=== PATIENT | female | born 1995 | race Caucasian/White ===

== ENCOUNTER → 2019-05-17 | Outpatient (CLI) | payer OTHER ==
[2019-05-17 10:34] LABS: Basophils % (A) 1 %; Eosinophils # (A) 0.1 k/uL (0-0.7); Eosinophils % (A) 3 %; HCT 46.2 % (34.0-46.0); HGB 14.4 gm/dL (11.4-16.0); Lymphocytes # (A) 1.3 k/uL (1.0-4.8); Lymphocytes % (A) 34 %; MCHC 31.2 g/dL (31.0-37.0); Mean Platelet Volume 8.2; Monocytes # (A) 0.3 k/uL (0-1.0); Monocytes % (A) 7 %; Neutrophils # (A) 2.1 k/uL (1.3-7.7); Neutrophils % (A) 53 %; Platelet Count 196 k/uL (150-450); RBC 4.97 m/uL (3.80-5.40); RDW 12.6 % (11.5-15.5); WBC 3.9 k/uL (3.8-10.6)
[2019-05-17 16:41] LABS: African American GFR (CKD) 140.6 (60.0-200.0); Albumin 5.3 g/dL (3.80-4.90); Albumin/Globulin Ratio 2.94 (1.60-3.17); Anion Gap 8.6 mmol/L (4.00-12.00); BUN/Creat Ratio 25.71 Ratio (12.00-20.00); Calcium 10.3 mg/dL (8.7-10.3); Carbon Dioxide 30.4 mmol/L (21.6-31.8); Globulin 1.8 g/dL (1.6-3.3); Non-African American GFR(CKD) 121.3 (60.0-200.0); Potassium 4.2 mmol/L (3.5-5.5); Total Bilirubin 1.6 mg/dL (0.3-1.2); Total Protein 7.1 g/dL (6.2-8.2)
== END | disposition home or self-care (01) ==
LOC: LABWHC1 09:10
PROVIDERS: ATTEND Psychiatry & Neurology Pain Medicine
DX: S06.9X9A Unspecified intracranial injury with loss of consciousness of unspecified duration, initial encounter (principal); Z51.81 Encounter for therapeutic drug level monitoring; Z97.8 Presence of other specified devices
CPT/HCPCS: 36415; 80053; 82306; 83735; 85025

== ENCOUNTER → 2021-04-19 | Outpatient (CLI) | payer OTHER | END | disposition home or self-care (01) | LOC: LABWHC1 10:06 | PROVIDERS: ATTEND Physical Medicine & Rehabilitation Pain Medicine | DX: S06.9X9A Unspecified intracranial injury with loss of consciousness of unspecified duration, initial encounter (principal); Y99.9 Unspecified external cause status | CPT/HCPCS: 36415; 82306 ==

== ENCOUNTER 2021-10-23 17:13 | Emergency (ER) | payer BC, OTHER ==
[2021-10-23 17:21] VITALS: BP 132/88; PULSE 70; RESP 16; TEMP 98
--- NOTE | 2021-10-23 17:45 | ED ---
General Adult HPI - General Chief complaint: ENT Stated complaint: Airway obstruction Time Seen by Provider: 10/23/21 17:28 Source: EMS, RN notes reviewed, old records reviewed Mode of arrival: EMS Limitations: altered mental status - History of Present Illness Initial comments: Patient is a 26-year-old female with past medical history remarkable for TBI, seizure disorder, dysphasia,difficulty with walking who presents emergency Department complaining of melena being stuck in her throat. She was cutting melanin eating and with her PT when she ate 2 large of a piece and became stuck in her throat. Patient's mother and EMS were called. She was brought here. This is about an hour prior to arrival. However upon arrival, patient coughed a few times and coughed the piece of melon out. Patient no longer has the sensation that something is stuck. Is tolerating oral intake. His no other acute complaints at this time. This has happened previously. 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 Patient's mother believe it would like to take her home at this time. Patient's mother cysts with the history. Patient otherwise has no acute complaints. No difficulty in breathing or swallowing at this time. - Related Data Home Medications Medication Instructions Recorded Confirmed Baclofen [Lioresal] 30 mg PO TID 01/23/15 01/23/15 Cholecalciferol [Vitamin D3] 1 tab PO DAILY 01/23/15 01/23/15 Winifrede-3 Fatty Acids [Winifrede-3] 1 tab PO BID 01/23/15 01/23/15 Sertraline [Zoloft] 50 mg PO DAILY 01/23/15 01/23/15 levETIRAcetam [Keppra] 750 mg PO BID 01/23/15 01/23/15 tiZANidine [Zanaflex] 4 mg PO TID 01/23/15 01/23/15 Previous Rx's Medication Instructions Recorded Cephalexin [Keflex] 500 mg PO Q6HR #40 cap 01/23/15 Allergies Allergy/AdvReac Type Severity Reaction Status Date / Time Penicillins AdvReac Rash/Hives Verified 10/23/21 17:23 Review of Systems ROS Statement: Those systems with pertinent positive or pertinent negative responses have been documented in the HPI. Review of Systems: CONST: Denies fever EYES: Denies blurry vision ENT: Denies nasal congestion C/V: Denies Chest pain RESP: Denies shortness of breath GI: Denies abdominal pain : Denies dysuria SKIN: Denies rash. MSK: Denies joint pain. NEURO: Denies headache ROS Other: All systems not noted in ROS Statement are negative. Past Medical History Past Medical History: Seizure Disorder Additional Past Medical History / Comment(s): Traumatic Brain Injury History of Any Multi-Drug Resistant Organisms: None Reported Additional Past Surgical History / Comment(s): achilles stretch, toe surgery Past Psychological History: Depression Smoking Status: Never smoker Past Alcohol Use History: None Reported Past Drug Use History: None Reported General Exam - General Exam Comments Initial Comments: General: Appears in no acute distress. HEAD: Normal with no signs of head trauma. EYES: EOMI. ENT: Hearing grossly intact, normal oropharynx. No stridor. RESPIRATORY: Clear breath sounds bilaterally. No respiratory distress. C/V: Regular rate and rhythm. Peripheral pulses 2+ and intact. ABD: Abd is soft, nontender, nondistended EXT: No obvious deformity. SKIN: No rashes or lesions observed on exposed skin. NEURO: Alert and oriented. Her baseline. Limitations: altered mental status Course Vital Signs 10/23/21 10/23/21 17:16 17:22 Temperature 98.0 F Pulse Rate 70 70 Respiratory 16 16 Rate Blood Pressure 132/88 O2 Sat by Pulse 97 96 Oximetry Medical Decision Making - Medical Decision Making Based on the patient's presentation and physical exam, patient likely had a food impaction of the esophagus that is since resolved since she coughed up the piece of melon. She is now tolerating both solid and liquid oral intake. The sensation that something is stuck has past. She otherwise has no acute complaints at this time. Like to be discharged home. I do believe this is reasonable. Reasons mother is at bedside was in agreement this plan. Will be discharged home in the care of her mother. Patient does have a history of dysphagia. She is under dysphagia precautions at home. I instructed the patient to follow up with their PCP in the next 1-3 days. I explained that the patient should return to the emergency department if they experience any worsening symptoms. Strict return precautions were discussed with the patient. The patient expressed understanding of these instructions. I answered all questions that the patient had. The patient was discharged home in good condition with their prescriptions and follow up information. Disposition Clinical Impression: Food impaction of esophagus, History of dysphagia Narrative: Resolved food impaction of the esophagus Disposition: HOME SELF-CARE Condition: Good Instructions (If sedation given, give patient instructions): Dysphagia (ED) Is patient prescribed a controlled substance at d/c from ED?: No Referrals: None,Stated [Primary Care Provider] - 1-2 days Time of Disposition: 17:45
== END 2021-10-23 17:45 | disposition home or self-care (01) ==
LOC: EEVIPCON 17:13 → EC 17:13
DX: T18.128A Food in esophagus causing other injury, initial encounter (principal); Z87.19 Personal history of other diseases of the digestive system; F32.A Depression, unspecified; Z88.0 Allergy status to penicillin
CPT/HCPCS: 99283